=== PATIENT | female | born 1990 | race Caucasian/White ===

== ENCOUNTER 2017-08-24 07:40 | Emergency (ER) | payer SELFPAY ==
[~2017-08-24] VITALS: Ht 162.6 cm; Wt 68.0 kg
[2017-08-24 08:15] VITALS: BP 115/74
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
== END 2017-08-24 08:30 | disposition home or self-care (01) ==
LOC: EMR 08:03
DX: S06.0X0A Concussion without loss of consciousness, initial encounter (principal); V43.52XA Car driver injured in collision with other type car in traffic accident, initial encounter; Y92.410 Unspecified street and highway as the place of occurrence of the external cause
CPT/HCPCS: 99282